=== PATIENT | female | born 2005 | race Caucasian/White ===

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

== ENCOUNTER 2024-06-30 11:50 | Outpatient (CLI) | payer MEDICAID, SELFPAY ==
[2024-06-30 12:24] LABS: Basophils # 0.1 K/mm3 (0-0.2); Basophils % 0.7 % (0.1-2.0); Eosinophils # 0.2 K/mm3 (0.0-0.4); Hematocrit 37.2 % (37.0-47.0); Hemoglobin 12.4 g/dL (12.2-16.2); Lymphocytes # 2.6 K/mm3 (0.7-4.5); Lymphocytes % 34.5 % (10-50); Mean Corpuscular HGB Conc 33.3 g/dL (31.8-35.4); Mean Corpuscular Hemoglobin 29.2 pg (27.0-31.2); Mean Corpuscular Volume 87.5 fl (81-99); Monocytes # 0.4 K/mm3 (0.1-1.0); Monocytes % 5.1 % (1.7-9.3); Neutrophils # 4.4 K/mm3 (1.8-7.8); Neutrophils % 57.4 % (37.0-80.0); Platelet Count 257 K/mm3 (142-424); Red Blood Count 4.25 M/mm3 (4.20-5.40); Red Cell Distribution Width 12.7 % (11.5-17.5); White Blood Count 7.6 K/mm3 (4.5-13.0)
[2024-06-30 13:20] LABS: Alanine Aminotransferase 125 U/L (12-78); Albumin Level 4.3 g/dl (3.5-5.0); Albumin/Globulin Ratio 1.9 (1.1-1.8); Alkaline Phosphatase 75 U/L (38-126); Anion Gap 11.7 mEq/L (5-15); Aspartate Amino Transferase 83 U/L (14-36); Bilirubin,Total 0.5 mg/dl (0.2-1.3); Blood Urea Nitrogen 11 mg/dl (7-17); Calcium 9.2 mg/dl (8.4-10.2); Carbon Dioxide 24 mmol/L (22.0-30.0); Chloride 103 mmol/L (98-107); Chol/HDL Ratio 4.9 (1-3.5); Cholesterol 172 mg/dl (140-200); Estimated Glomerular Filt Rate 127 ml/min (>60); GFR (African American) 154 ML/MIN (>60); Globulin 2.3 g/dL (1.3-3.2); Glucose 236 mg/dl (74-100); HDL Cholesterol 35 mg/dl (40-60); Potassium 4.7 mmoL/L (3.5-5.1); Sodium 134 mmol/L (136-145); Total Protein,Serum 6.6 g/dl (6.3-8.2); Triglycerides 187 mg/dl (30-150); VLDL Cholesterol 37 mg/dL (0-40)
[2024-06-30 13:30] LABS: Direct LDL Cholesterol 116.06 mg/dL (100-129)
[2024-06-30 13:34] LABS: Hemoglobin A1C 7.5 % (4.0-6.0)
[2024-06-30 13:58] LABS: Thyroid Stimulating Hormone 9.33 uIU/mL (0.465-4.68)
[2024-06-30 14:01] LABS: HIV Combo NEGATIVE (Negative)
[2024-06-30 14:17] LABS: Vitamin B12 493 pg/mL (239-931)
[2024-06-30 15:17] LABS: Iron 86 ug/dL (37-170)
[2024-06-30 15:27] LABS: Total Iron Binding Capacity 337 ug/dL (265-497)
[2024-06-30 15:35] LABS: Free T4 (Free Thyroxine) 0.95 ng/dl (0.78-2.19)
[2024-06-30 15:42] LABS: 25-OH Vitamin D, Total 17.2 ng/mL (30-100)
[2024-06-30 15:53] LABS: Ferritin 134 ng/ml (6.24-137)
[2024-07-01 07:10] LABS: Hep A Ab, Total Positive (Negative); Hep B Core Ab, Total Negative (Negative); Hepatitis C Antibody Non Reactive (Non Reactive)
[2024-07-01 08:14] LABS: Triiodothyronine (T3) Total 161 ng/dL (71-180)
== END 2024-06-30 23:59 | disposition home or self-care (01) ==
LOC: LAB 11:51
PROVIDERS: Visit Provider Family Medicine Addiction Medicine
DX: Z00.00 Encounter for general adult medical examination without abnormal findings (principal); Z79.899 Other long term (current) drug therapy
CPT/HCPCS: 36415; 80053; 80061; 82306; 82607; 82728; 82746; 83036; 83540; 83550; 84439; 84443; 84480; 85025; 86704; 86708; 87380; 87389